=== PATIENT | male | born 1970 | race Caucasian/White ===

== ENCOUNTER 2016-05-08 13:22 | Observation (INO) | payer BC ==
[~2016-05-08] VITALS: Ht 195.6 cm
[~2016-05-08 13:22] MED LIST: B COMPLEX1 EAC2 PO; CYANOCOBALAM1000 MCG PO; POTASSIUM-9999 MG PO; VITAMIN D2000 INTUN PO
[2016-05-08 14:03] LABS: HEMATOCRIT 46.9 % (38.0-50.0); MCHC 34.8 G/DL (30.0-36.0); MCV 94.9 FL (86-99); MEAN PLAT.VOLUME 9.1 uM^3 (9.0-12.4); PLATELET COUNT 198 K/uL (156-360); RBC DIS.WIDTH-CV 12.9 % (11.8-14.6); RBC DIS.WIDTH-SD 43.5 % (39-53); RED BLOOD COUNT 4.94 M/uL (4.00-5.50); WHITE BLOOD COUNT 13.2 K/uL (4.1-10.2)
[2016-05-08 14:18] LABS: CHLORIDE 104 mEq/L (99-109); SODIUM 140 mEq/L (136-147)
[2016-05-08 14:20] LABS: GLUCOSE 103 mg/dL (70-99)
[2016-05-08 14:21] LABS: ANION GAP 14 MEQ/L (2-14)
[2016-05-08 14:23] LABS: GFR ESTIMATE (CALCULATED) > 59 mL/min/
[2016-05-08 14:24] LABS: UREA NITROGEN (BUN) 12 mg/dL (9-23)
[2016-05-08 14:26] LABS: TROP-I INTERPRETATION NEGATIVE; TROPONIN-I < 0.01 ng/mL (0.0-0.30)
[2016-05-08 16:16] LABS: TROP-I INTERPRETATION NEGATIVE; TROPONIN-I < 0.01 ng/mL (0.0-0.30)
[2016-05-08] MEDS ORDERED: AMPHETAMINE SAL30 MG PO (18:44)
[2016-05-08] MEDS ORDERED: OXYCODONE-APAP1 EACH PO (18:44)
[2016-05-08 21:47] LABS: TOTAL BILIRUBIN 0.6 mg/dL (0.0-1.0)
[2016-05-08 21:48] LABS: ALKALINE PHOSPHATASE 66 IU/L (3-129)
[2016-05-08 21:51] LABS: DIRECT BILIRUBIN 0.2 mg/dL (0.0-0.3)
[2016-05-08 21:52] LABS: LIPASE 32 U/L (1.0-51.0)
[2016-05-08 21:54] LABS: TROP-I INTERPRETATION NEGATIVE; TROPONIN-I < 0.01 ng/mL (0.0-0.30)
[2016-05-09 04:17] LABS: HEMATOCRIT 42.2 % (38.0-50.0); MCHC 34.4 G/DL (30.0-36.0); MCV 95.9 FL (86-99); MEAN PLAT.VOLUME 9.4 uM^3 (9.0-12.4); PLATELET COUNT 180 K/uL (156-360); RBC DIS.WIDTH-SD 43.8 % (39-53); WHITE BLOOD COUNT 9.3 K/uL (4.1-10.2)
[2016-05-09 04:24] VITALS: BP 115/70
[2016-05-09 04:38] LABS: TROP-I INTERPRETATION NEGATIVE; TROPONIN-I < 0.01 ng/mL (0.0-0.30)
[2016-05-09 08:30] VITALS: BP 120/80
[2016-05-09] MEDS ORDERED: BENZONATATE200 MG PO (10:25)
[2016-05-09] MEDS ORDERED: AZITHROMYCIN500 M1 PO (10:26)
[2016-05-09] MEDS ORDERED: NICODERM CQ1 EAC1 TD (10:27)
== END 2016-05-09 12:13 | disposition home or self-care (01) ==
LOC: EME 13:22 → 5WEST 20:53 → EDOF 20:53 → 5WEST 05-09 00:08
PROVIDERS: Emergency Medicine; Hospitalist
DX: R07.89 Other chest pain (principal); J40 Bronchitis, not specified as acute or chronic; R05 Cough; Z82.49 Family history of ischemic heart disease and other diseases of the circulatory system; F17.200 Nicotine dependence, unspecified, uncomplicated; D72.829 Elevated white blood cell count, unspecified; Z79.82 Long term (current) use of aspirin
CPT/HCPCS: 71020; 80048; 80076; 83690; 84484; 85027; 93005; 94640; 99202; 99281; 99285; G0378; J2270